=== PATIENT | male | born 1945 | race Caucasian/White ===

== ENCOUNTER 2017-03-25 14:46 | Emergency (ER) | payer OTHER ==
[~2017-03-25] VITALS: Ht 170.2 cm; Wt 82.2 kg
[~2017-03-25 14:46] MED LIST: ALBUAER INH; ALBUAER2 INH; ASPEC325 PO; ASPI81TA28 PO; ATEN25TA PO; BACL10TA PO; FAMO20TA11 PO; FERR325T51 PO; HYDR-5688 PO; LISI-729 PO; MULT-506 PO; NTRSL3 UT; OXYSR10 PO; PANT40TA PO; ROPI5TAB PO; SENNTAB23 PO; SIMV80TA2 PO; TAMS0.4C38 PO; VITAMIN B PO; VITAMIN B12 PO
[2017-03-25 14:49] VITALS: TEMP 36.9; Ht 170.2 cm; Wt 82.2 kg
--- NOTE | 2017-03-25 16:18 | DIAGNOSTIC IMAGING REPORT ---
HEAD WITHOUT CONTRAST (CT) CT DOSE: 537.48 mGy.cm HISTORY: Mental status change eval for cva TECHNIQUE: Multiaxial CT images of the head were performed without the use of intravenous contrast. A dose lowering technique was utilized adhering to the principles of ALARA. Comparison: None. Findings: The paranasal sinuses and mastoid air cells are clear. The calvarium and skull base are intact. The ventricles and sulci are within normal limits. There is no mass, hematoma, midline shift, or acute infarct. Impression: No acute intracranial abnormality. The above report was generated using voice recognition software. It may contain grammatical, syntax or spelling errors. Electronically signed by: Shreyas Titus M.D. 03/25/2017 4:17 PM Dictated Date/Time: 03/25/2017 4:16 PM
--- NOTE | 2017-03-25 16:41 | DIAGNOSTIC IMAGING REPORT ---
CHEST 2 VIEWS ROUTINE CLINICAL HISTORY: pre op preoperative evaluation COMPARISON STUDY: 06/04/2015 FINDINGS: Chronic fibrotic change left base. Prior median sternotomy. Diaphragms smooth. Lungs otherwise are clear. IMPRESSION: Chronic interstitial change left base. No acute process. No change from the prior exam. The above report was generated using voice recognition software. It may contain grammatical, syntax or spelling errors. Electronically signed by: Shreyas Titus M.D. 03/25/2017 4:40 PM Dictated Date/Time: 03/25/2017 4:39 PM
[2017-03-25 16:45] VITALS: BP 113/76; PULSE 61; O2SAT 99
--- NOTE | 2017-03-25 17:46 | EMERGENCY ROOM VISIT NOTE ---
History Report prepared by Lior: Johnna De La Cruz Under the Supervision of: Dr. Marky Pham M.D. First contact with patient: 15:05 Chief Complaint: NEURO SYMPTOMS Stated Complaint: SENT FROM [facility] TIA SX Nursing Triage Summary: right sided facial numbness for the past several days. History of Present Illness The patient is a 71 year old male who presents to the Emergency Room with complaints of intermittent neurological symptoms for the past 3-4 days. He states that 3-4 days ago he felt "something snap" in his jaw. He then developed numbness and tingling in his lower lip that last for about two minutes and then resolved on its own. This feeling has happened 2-3 more times since the initial episode with each subsequent episode lasting about two minutes. The patient wears dentures and states that he got new dentures 6 months ago that are not fitting quite right. They are rubbing his gums and irritating his mouth. He thought that his symptoms might be due to his ill-fitting dentures. The patient states that he has a history of jaw fracture and was told that he has a very thin jaw. The patient denies any dental pain, numbness to his extremities , difficulty walking or speaking, recent tick bites, and rash. The patient was getting blood work done at pre-admission testing today for surgery on April 08. He mentioned his symptoms and was sent to the ED for further evaluation. He does take daily aspirin. Source of History: patient Onset: 3-4 days ago Position: lip, jaw Quality: numbness Timing: intermittent Modifying Factors (Relieving): other (time) Associated Symptoms: No rash Note: Pt denies dental pain, numbness to his extremities, difficulty walking or speaking, and recent tick bites. Review of Systems See HPI for pertinent positives & negatives. A total of 10 systems reviewed and were otherwise negative. Past Medical & Surgical Medical Problems: (1) Hypertension (2) Wears dentures Surgical Problems: (1) S/P TKR (total knee replacement) Family History Cancer Heart disease Hypertension Seizures Social History Smoking Status: Never Smoker Smokeless Tobacco Use: No Alcohol Use: occasionally Marital Status: Housing Status: lives with significant other Occupation Status: retired Current/Historical Medications Scheduled Albuterol Sulfate (Proventil Hfa), 2 PUFFS INH PRN Aspirin (Aspirin Ec), 81 MG PO QAM Atenolol (Tenormin), 25 MG PO QAM Baclofen (Lioresal), 10 MG PO QAM Famotidine (Pepcid), 20 MG PO QAM Lisinopril (Zestril), 2.5 MG PO QAM Nitroglycerin (Nitrostat), 0.3 MG UT PRN Pantoprazole (Protonix), 40 MG PO QAM Ropinirole (Requip), 5 MG PO BID Sennosides-Docusate Sodium (Stool Softener), 1 TAB PO QAM Simvastatin (Zocor), 80 MG PO HS Tamsulosin Hcl (Flomax), 0.4 MG PO HS [Vitamin B12], 1 TAB PO QAM Scheduled PRN Hydrocodone/Acetaminophen 5MG/325MG ([place] 5MG/325MG), 1-2 TAB PO Q4H PRN for N Allergies Coded Allergies: No Known Allergies (Unverified , 03/25/17) Physical Exam Vital Signs Date Time Temp Pulse Resp B/P (MAP) Pulse Ox O2 Delivery O2 Flow Rate FiO2 03/25/17 16:45 61 18 113/76 99 03/25/17 16:24 61 18 113/76 99 Room Air 03/25/17 14:49 36.9 66 18 131/75 94 Room Air Physical Exam Constitutional: Vital signs reviewed. Eyes: Pupils are equal round reactive to light. Conjunctiva are noninjected. ENT: Pharynx is clear without erythema or exudate. Mucous membranes are moist. No jaw tenderness. He does have a very thin mandible. No signs of irritation to the gums under the dentures. Neck supple without meningeal signs. Respiratory: Clear to auscultation bilaterally. Breath sounds are equal bilaterally. Cardiovascular: Regular rate and rhythm. No rubs or gallops. GI: Soft, nondistended and nontender. Bowel sounds are present. Musculoskeletal: No peripheral edema. No lower extremity tenderness. Integumentary: No cyanosis. Neurological: The patient is awake and alert. Cranial nerves II-XII are intact. Motor is 5 out of 5 all extremities. Sensation is intact to light touch all extremities. Normal speech. No pronator drift. Psychiatric: Normal affect. Medical Decision & Procedures ER Provider Diagnostic Interpretation: Radiology results as stated below per my review and the radiologist's interpretation: HEAD WITHOUT CONTRAST (CT) CT DOSE: 537.48 mGy.cm HISTORY: Mental status change eval for cva TECHNIQUE: Multiaxial CT images of the head were performed without the use of intravenous contrast. A dose lowering technique was utilized adhering to the principles of ALARA. Comparison: None. Findings: The paranasal sinuses and mastoid air cells are clear. The calvarium and skull base are intact. The ventricles and sulci are within normal limits. There is no mass, hematoma, midline shift, or acute infarct. Impression: No acute intracranial abnormality. The above report was generated using voice recognition software. It may contain grammatical, syntax or spelling errors. Electronically signed by: Shreyas Titus M.D. 03/25/2017 4:17 PM Dictated Date/Time: 03/25/2017 4:16 PM CHEST 2 VIEWS ROUTINE CLINICAL HISTORY: pre op preoperative evaluation COMPARISON STUDY: 06/04/2015 FINDINGS: Chronic fibrotic change left base. Prior median sternotomy. Diaphragms smooth. Lungs otherwise are clear. IMPRESSION: Chronic interstitial change left base. No acute process. No change from the prior exam. The above report was generated using voice recognition software. It may contain grammatical, syntax or spelling errors. Electronically signed by: Shreyas Titus M.D. 03/25/2017 4:40 PM Dictated Date/Time: 03/25/2017 4:39 PM ECG Indication: other (neuro sx) Rate (beats per minute): 58 Rhythm: sinus bradycardia Findings: no acute ischemic change, no ectopy ED Course 1505: The patient was evaluated in room B9. A complete history and physical exam was performed. 1639: I reassessed the patient at this time. He is feeling better and resting comfortably. He is currently asymptomatic. I discussed the results and treatment plan with the patient. I answered all pertaining questions that he had. He expressed understanding and verbalized agreement. The patient will be discharged home. Medical Decision This is a 71-year-old male who presents with intermittent right lower jaw numbness. Differential diagnosis includes TIA, intracranial hemorrhage, intracranial mass, neurapraxia. I did perform a limited focused review of portions of the patient's old chart on the electronic medical record. The patient has had no recent pertinent visits to this hospital. I did evaluate the patient as noted above. Patient is presenting with intermittent episodes of right lower jaw numbness. He states it feels like something is snapping and there and the numbness only lasts for 2 minutes. He has no other symptoms. He has no history of TIA or CVA. He does state that he has recently obtained new dentures which seem to be rubbing his mandible the wrong way and are very ill fitting. He states his symptoms occurred when he was eating a jaw breaker. He does not have any pain to his jaw. He is neurologically intact at this time. He did have blood work earlier today. I did order and personally review the patient's 12-lead EKG and chest x-ray as described above. I did order a CT of the head. I did review the images myself as well as the radiology report as described above. There is no evidence of acute pathology. I did discuss the test results with the patient. He does take aspirin daily. He will continue to take the aspirin. It is unclear whether he had a TIA or transient numbness may be an issue with his dentures pushing on the inferior alveolar nerve. He was advised to follow up very closely with his doctor for further evaluation and to try a soft diet in the meantime. He was discharged in good condition. He was given return instructions as outlined below. Medication Reconcilliation Current Medication List: was personally reviewed by me Blood Pressure Screening Patient's blood pressure: Elevated blood pressure Blood pressure disposition: Referred to PCP Impression Primary Impression: Right facial numbness Scribe Attestation The scribe's documentation has been prepared under my direct and personally reviewed by me in its entirety. I confirm that the note above accurately reflects all work, treatment, procedures, and medical decision making performed by me. Departure Information Dispostion Home / Self-Care Referrals Aron Robison D.O. (PCP) Forms HOME CARE DOCUMENTATION FORM, IMPORTANT VISIT INFORMATION, WORK / SCHOOL INSTRUCTIONS Patient Instructions [facility] Additional Instructions You have been examined and treated today on an emergency basis only. This is not a substitute for, or an effort to provide, complete comprehensive medical care. It is impossible to recognize and treat all injuries or illnesses in a single emergency department visit. It is therefore important that you follow up closely with your physician. Call as soon as possible for an appointment. Return for worsening symptoms or if you develop fever, numbness or weakness on one side of your body, difficulties with your speech or walking, or any other concerning symptoms.
== END 2017-03-25 16:45 | disposition home or self-care (01) ==
LOC: C.EDB 14:48
DX: R20.0 Anesthesia of skin (principal); I10 Essential (primary) hypertension; Z82.49 Family history of ischemic heart disease and other diseases of the circulatory system; Z82.0 Family history of epilepsy and other diseases of the nervous system; Z79.82 Long term (current) use of aspirin

== ENCOUNTER 2017-04-08 05:54 | Inpatient (IN) | payer OTHER ==
--- NOTE | 2017-03-25 13:29 | HISTORY & PHYSICAL EXAMINATION ---
DATE OF ADMISSION: 04/08/2017 CHIEF COMPLAINT: Left knee pain. HISTORY OF PRESENT ILLNESS: Mr. Houston is a 71-year-old male with a multiple year history of left knee pain. The patient rates his pain a 10/10. He has pain with his daily activities. He has limited standing and walking tolerance. Pain is worse with weightbearing. The patient has failed bracing, physical therapy, narcotics over the last few years. He has had knee arthroscopy in October of this year. He has failed conservative treatment and is now scheduled for left knee replacement. PAST MEDICAL HISTORY: History of ME 2002, COPD, seizure in 1975, acid reflux. He denies diabetes or DVT. PAST SURGICAL HISTORY: Quadruple bypass, tonsillectomy, umbilical hernia repair, ORIF right arm, ORIF left wrist, hardware removal ankle, closed reduction of the shoulder, right rotator cuff repair, bilateral carpal tunnel, cardiac stent placement, hemorrhoidectomy, right knee arthroscopy, right TKA and left knee arthroscopy. SOCIAL HISTORY: The patient drinks 2 drinks per week. He denies tobacco use. He lives in a single story home. He is and retired. FAMILY HISTORY: Negative for DVT. MEDICATIONS: Baclofen 10 mg t.i.d., Requip 5 mg t.i.d., Requip, Flomax 0.4 mg daily, famotidine 20 mg daily, aspirin 81 mg daily, Nitrostat 0.3 mg p.r.n., Protonix 40 mg daily, atenolol 25 mg daily, atorvastatin 80 mg, [place] 5/325, lisinopril 2.5 mg, Ventolin HFA 90 mcg, Proventil HFA 90 mcg, stool softener, Voltaren 1% gel and Mobic 15 mg. ALLERGIES: None. REVIEW OF SYSTEMS: See HPI. Ten other systems reviewed, all negative. PHYSICAL EXAMINATION: VITAL SIGNS: Height 5 foot 7, weight 182 pounds, BMI 26. GENERAL: This is a well-developed, well-nourished male who is alert and oriented x3. Mood and affect are appropriate. HEAD, EYES, EARS, NOSE, AND THROAT: Normocephalic, atraumatic. Mucous membranes are moist and intact. NECK: Supple without lymphadenopathy. HEART: Regular rate and rhythm without murmurs, rubs or gallops. LUNGS: Clear to auscultation without wheezes or rhonchi. ABDOMEN: Soft and nontender. Bowel sounds are equal and active. EXTREMITIES: No ecchymosis, redness or warmth. He has varus deformity. He has scars noted from his recent arthroscopy. He has large Edouard's cyst posteriorly. Range of motion is from 5-110 degrees with moderate effusion. He is otherwise neurovascularly intact. X-RAY EXAMINATION: AP and lateral views show joint space narrowing and osteophyte formation. IMPRESSION: Degenerative joint disease, left knee. PLAN: The patient will be admitted for a left total knee arthroplasty. We will plan on aspirin for DVT prophylaxis. The patient has [facility] insurance and will likely need local home physical therapy upon discharge.
[2017-03-25 13:32] VITALS: BMI 28.0
--- NOTE | 2017-03-25 14:24 | PAT Medication Instructions ---
Service Date Mar 25, 2017. Current Home Medication List Albuterol Sulfate (Proventil Hfa), 2 PUFFS INH PRN Aspirin (Aspirin Ec), 81 MG PO QAM Atenolol (Tenormin), 25 MG PO QAM Baclofen (Lioresal), 10 MG PO QAM Famotidine (Pepcid), 20 MG PO QAM Hydrocodone/Acetaminophen 5MG/325MG ([place] 5MG/325MG), 1-2 TAB PO Q4H PRN for N Lisinopril (Zestril), 2.5 MG PO QAM Nitroglycerin (Nitrostat), 0.3 MG UT PRN Pantoprazole (Protonix), 40 MG PO QAM Ropinirole (Requip), 5 MG PO BID Sennosides-Docusate Sodium (Stool Softener), 1 TAB PO QAM Simvastatin (Zocor), 80 MG PO HS Tamsulosin Hcl (Flomax), 0.4 MG PO HS [Vitamin B12], 1 TAB PO QAM Medication Instructions For Your Scheduled Surgery - Continue as directed: Nitroglycerin (Nitrostat), 0.3 MG UT PRN - Hold the following medications the morning of surgery: [Vitamin B12], 1 TAB PO QAM Sennosides-Docusate Sodium (Stool Softener), 1 TAB PO QAM Lisinopril (Zestril), 2.5 MG PO QAM Baclofen (Lioresal), 10 MG PO QAM Ropinirole (Requip), 5 MG PO BID Hold the following the night before surgery: Hydrocodone/Acetaminophen 5MG/325MG ([place] 5MG/325MG), 1-2 TAB PO Q4H PRN (if needed - Take the following medications the morning of surgery with a sip of water: Albuterol Sulfate (Proventil Hfa), 2 PUFFS INH PRN Aspirin (Aspirin Ec), 81 MG PO QAM Atenolol (Tenormin), 25 MG PO QAM Famotidine (Pepcid), 20 MG PO QAM Hydrocodone/Acetaminophen 5MG/325MG ([place] 5MG/325MG), 1-2 TAB PO Q4H PRN (if needed, can be taken up to four hours before surgery) Pantoprazole (Protonix), 40 MG PO QAM - Take the following medications as scheduled the night before surgery: Simvastatin (Zocor), 80 MG PO HS Tamsulosin Hcl (Flomax), 0.4 MG PO HS Hydrocodone/Acetaminophen 5MG/325MG ([place] 5MG/325MG), 1-2 TAB PO Q4H PRN (if needed) If you have any questions please call us at [phone] or [phone] or [phone]
[2017-03-25 15:05] LABS: BASO % 0.2 %; BASO ABS # 0.01 K/uL (0-0.2); COMPLETE YES; EOS % 1.6 %; HEMATOCRIT 39.6 % (42-52); IG% 0.2 %; LYMPH % 22.8 %; LYMPH ABS # 0.99 K/uL (1.2-3.4); MEAN CELL VOLUME 99.5 fL (80-100); MEAN CORPUSCULAR HEMOGLOBIN 33.4 pg (25-34); MEAN CORPUSCULAR HGB CONC 33.6 g/dl (32-36); MEAN PLATELET VOLUME 9.4 fL (7.4-10.4); MONO % 9.4 %; NEUT % 65.8 %; PLATELET COUNT 149 K/uL (130-400); RED BLOOD COUNT 3.98 M/uL (4.7-6.1); WHITE BLOOD COUNT 4.35 K/uL (4.8-10.8)
[2017-03-25 15:14] LABS: BUN/CREATININE RATIO 18.2 (10-20); CALCIUM 9.2 mg/dl (8.5-10.1); CREATININE 1.07 mg/dl (0.60-1.40)
--- NOTE | 2017-03-25 15:18 | Anesthesiology Progress Note ---
Anesthesia Progress Note Date of Service Mar 25, 2017. Progress Notes Patient was seen in [facility] for upcoming LTKA. Upon interviewing the patient he revealed to me that he has been having transient numbness of his right jaw for approximately 4 days, each time lasting for a few minutes. The most recent episode of this was yesterday while riding in the car. He denied having the symptoms presently. He said when it first happened he had a sharp pain in his jaw, and then had episodes of numbness a few times per day for the past 4 days. He does have a history of injury and fracture repair to the jaw many years ago, but has never experienced these symptoms before. He also has a history of tobacco abuse (1 ppd x 20+ years), [place] 2002, PE 2011. Patient's vital signs were stable at [facility]. Based on my assessment, I felt it was reasonable to send the patient to the ER given his risk for TIA. The patient and his were agreeable. The patient had his [facility] blood work completed while I called over to the ER patient care secretary who transferred me to the triage nurse. e I informed her I would be bringing a patient over. I then walked the patient and his over to the ER. He declined a wheelchair. I brought him to the front desk assistant at the ER and got him checked in, where the patient care secretary, Mishel, said they would send him back as soon as the triage nurse was free, as she was currently doing intake with another patient.
[2017-03-25 15:20] LABS: INR 0.9 (0.9-1.1)
[2017-04-08] VITALS (8 sets, daily range): BP systolic 99–124; BP diastolic 56–72; PULSE 63–71; TEMP 36.4–37; O2SAT 94–100; Ht 170.2 cm; Wt 82.5 kg
[~2017-04-08] VITALS: Ht 170.2 cm; Wt 82.5 kg
[~2017-04-08 05:54] MED LIST changes: -ALBUAER2 INH; -ASPEC325 PO; -FERR325T51 PO; -MULT-506 PO; -OXYSR10 PO; -VITAMIN B PO
[2017-04-08] MEDS ORDERED: LACTATED RINGER'S 1000ML 1,000 ML IV SCH (06:00)
[2017-04-08] MEDS ORDERED: METOCLOPRAMIDE HCL 10 MG TAB PO SCH (06:00)
[2017-04-08] MEDS ORDERED: CeleBREX 200 MG CAP PO SCH (06:00)
[2017-04-08] MEDS ORDERED: LACTATED RINGER'S 1000ML 500 ML IV ONE (06:00)
[2017-04-08] MEDS ORDERED: DEXAMETHASONE 4 MG TAB PO SCH (06:00)
[2017-04-08] MEDS ORDERED: CEFAZOLIN 2000MG IV PUSH 10 ML IV SCH (06:00)
[2017-04-08] MEDS ORDERED: GABAPENTIN 300 MG CAP PO SCH (06:00)
[2017-04-08] MEDS ORDERED: LACTATED RINGER'S 1000ML IV SCH (06:00)
[2017-04-08] MEDS ORDERED: FAMOTIDINE 20 MG TAB PO SCH (06:00)
[2017-04-08] MEDS ORDERED: ACETAMINOPHEN 500 MG TAB PO SCH (06:00)
[2017-04-08] MEDS ORDERED: ROPIVACAINE 5MG/ML 30 ML 150 MG, BUPIVACAINE 0.5% MPF INJ 30 ML, EpINEphrine HCL INJ 0.... INFIL SCH ×8 (06:00)
[2017-04-08] MEDS ORDERED: BUPIVACAINE 0.5 % 5 MG/1 ML PF 10ML VIAL ONE (06:27)
[2017-04-08] MEDS ORDERED: ROPIVACAINE 0.5% 5 MG/ML 30 ML VIAL ONE (06:28)
[2017-04-08] MEDS: TRANEXAMIC ACID INJ 1,000 MG in SYRINGE 0 ML IV SCH ×2 (06:30→09:05)
--- NOTE | 2017-04-08 07:02 | History & Physical Bridge Note ---
H&P Re-Evaluation Bridge Note: I have examined the patient, reviewed the History & Physical and in the interval since the performance of the History & Physical I have noted the following changes of clinical significance: No changes noted
[2017-04-08] MEDS ORDERED: ONDANSETRON INJ 2 MG/ML 2 ML VIAL IV PRN ×2 (08:30→11:30)
[2017-04-08] MEDS ORDERED: EpHEDrine SULFATE INJ 50 MG/ML AMP IV PRN (08:30)
[2017-04-08] MEDS ORDERED: ATROPINE SULFATE 0.1 MG/ML 5ML SYR IV PRN (08:30)
[2017-04-08] MEDS ORDERED: PHENYLEPHRINE 100MCG/ML 5ML SYR IV PRN (08:30)
[2017-04-08] MEDS ORDERED: HYDROmorphone INJ 2 MG/ML SYR/VIAL IV PRN (08:30)
[2017-04-08] MEDS ORDERED: MIDAZOLAM HCL 1 MG/ML 2ML VIAL ONE ×2 (08:46)
[2017-04-08] MEDS ORDERED: ORTHO JOINT ANESTHETIC ONE (09:21)
[2017-04-08] MEDS ORDERED: BACITRACIN 50000 UNIT VIAL ONE (09:21)
[2017-04-08] MEDS ORDERED: POVIDONE-IODINE OP SOLN 30 ML BTL ONE (09:21)
[2017-04-08] MEDS ORDERED: PROPOFOL IV EMULSION 10 MG/ML 20 ML VIAL IV ONE (10:04)
[2017-04-08] MEDS ORDERED: LIDOCAINE HCL 2% 2 ML VIAL (20MG/ML) ONE (10:04)
--- NOTE | 2017-04-08 10:51 | [facility] Operative Report ---
Operative Report Operative Date Apr 08, 2017. Pre-Operative Diagnosis Degenerative joint disease left knee Post-Operative Diagnosis Same Procedure(s) Performed Left total knee arthroplasty cemented Simple Tit[place] journey to with blocks patient matched size 6 femur 5 tibia 11 Jaclyn [address] Viera Bodily Injury Adjuster Surgeon(s) Simran Castrejon PA-C Estimated Blood Loss 5cc Findings Patient presents with severe end-stage DJD varus alignment subchondral osteophyte subchondral cystic changes osteophytes and sclerosis patient's failed attempts conservative management including injections anti- inflammatories Roto-Rest activity modification presents for total knee arthroplasty Specimens A. Left knee bone and tissue Complication(s) None Disposition Recovery Room / PACU Indications Patient presents with DJD left knee of failing attempts at conservative management including physical therapy anti-inflammatories relative rest activity modifications x-rays will be able subchondral cystic changes medial compartment DJD patellofemoral compartment DJD chondrosis marginal osteophytes as well as subchondral cystic changes and sclerotic changes Description of Procedure After proper prepping and draping of the left lower extremity anterior midline incision was made over the region of the extensor extensor mechanism after meticulous hemostasis was obtained and maintained in subcutaneous tissues a medial parapatellar incision was made The patella was subluxed lateralward the medial lateral gutter were cleaned from any hypertrophic synovitis and scar tissue of the distal femoral block was placed and the distal femoral osteotomy cut was made subsequently the chamfers anterior and posterior osteotomy cuts were made utilizing the 4-in-1 block the tibia was subsequently subluxed anteriorward medial and ateral meniscal remnants were excised in their entirety remnants of the anterior and posterior cruciate ligaments were excised in their entirety excellent exposure of the proximal tibia was obtained the tibial osteotomy guide was placed on the proximal tibial osteotomy cut was made once again the knee was irrigated with copious amounts of sterile saline solution the patella was subsequently everted lateralward thickened scar tissue around the patella was removed the patella was subsequently cut utilizing a freehand technique and was drilled prepared for final preparation and placement of patella socially flexion-extension gaps were checked and the equal and symmetric trials were placed to the appropriate femoral and tibial trials with poly-spacer being placed for equal flexion and extension gaps and full range of motion including extension to 0 and flexion to 140 the trial components after having been taken to recovery range of motion was subsequently removed meticulous hemostasis was obtained and maintained subsequently a knee block injection of joint cocktail including ropivacaine 0.5% 150 mg. Bupivacaine 0.5 % epinephrine 1-200,030 mL's toradol 30 mg dexamethasone 4 mg ketamine 10 mg clonidine 100 micrograms normal saline solution 30 mg was infiltrated into the soft tissues of the posterior knee medial lateral gutters and periosteal synovium special attention was paid to protect neurovascular structures at all times subsequently trial components having been removed the knee was irrigated with sterile saline solution. debris was removed the proximal tibia was subsequently prepared and was made ready for the placement of the tibial component tibial component was also cemented and tamped into position the femoral component was subsequently placed and cemented in the position the patellar component was subsequently cemented in position because hemostasis once again obtained and maintained wound having been thoroughly irrigated with debridement and debridement lavage was performed as well as a medial parapatellar incision closed with #1 Vicryl in interrupted fashion subcutaneous was closed with #2 Vicryl skin was closed with skin clips. PA-C was necessary for prepping and drapping as well as wound closure of deep fascia Sub cutaneous tissue and skin and was necessary for the case. A sterile compressive dressing was placed patient was taken to recovery in stable condition of report dictated by Maximiliano I attest to the content of the Intraoperative Record and any orders documented therein. Any exceptions are noted below. I attest to the content of the Intraoperative Record and any orders documented therein. Any exceptions are noted below.
[2017-04-08] MEDS ORDERED: BISACODYL 10 MG SUPP PR PRN (11:30)
[2017-04-08] MEDS ORDERED: SOD PHOSPHATE/SOD BIPHOSPHATE ENEMA 132 ML BTL PR PRN (11:30)
[2017-04-08] MEDS ORDERED: ZOLPIDEM TARTRATE 5 MG TAB PO PRN (11:30)
[2017-04-08] MEDS ORDERED: NITROGLYCERIN 0.3 MG/1 TAB 100 TAB BTL UT PRN (11:30)
[2017-04-08] MEDS ORDERED: ALBUTEROL HFA 8 GM INHALER INH PRN (11:30)
[2017-04-08] MEDS ORDERED: MAGNESIUM HYDROXIDE SUSP 30 ML UDC PO PRN (11:30)
[2017-04-08] MEDS ORDERED: ALUMINUM/MAGNESIUM/SIMETH (MAALOX MAX) 30 ML UDC PO PRN (11:30)
[2017-04-08] MEDS ORDERED: MoRPHine SULFATE 2 MG/ML CARP IV PRN (11:30)
--- NOTE | 2017-04-08 11:37 | Anesthesiology Progress Note ---
Anesthesia Post Op Note Date & Time Apr 08, 2017 at 11:37 Vital Signs Pain Intensity: 0 Vital Signs Past 12 Hours Date Time Temp Pulse Resp B/P (MAP) Pulse Ox O2 Delivery O2 Flow Rate FiO2 04/08/17 11:25 36.2 68 14 98/56 95 Room Air 04/08/17 06:55 36.9 68 18 120/65 95 Room Air Notes Mental Status: alert / awake / arousable, participated in evaluation Pt Amnestic to Procedure: Yes Nausea / Vomiting: adequately controlled Pain: adequately controlled Airway Patency, RR, SpO2: stable & adequate BP & HR: stable & adequate Hydration State: stable & adequate Anesthetic Complications: no major complications apparent
--- NOTE | 2017-04-08 12:22 | DIAGNOSTIC IMAGING REPORT ---
L KNEE 1 OR 2 VIEWS ROUTINE CLINICAL HISTORY: Postoperative evaluation. COMPARISON: None FINDINGS: Alignment of the total left knee arthroplasty is anatomic. There is no periprosthetic fracture or unexpected radiopaque foreign body. Surgical clip is noted within the soft tissues medial to the left knee. Surgical drain is in place. IMPRESSION: Expected findings following total left knee arthroplasty. Electronically signed by: Ralhp Ugarte M.D. 04/08/2017 12:20 PM Dictated Date/Time: 04/08/2017 12:19 PM
[2017-04-08] MEDS: D5W AND 1/2NSS + 20MEQ KCL 1,000 ML IV SCH ×2 (14:14→23:37)
[2017-04-08] MEDS: ACETAMINOPHEN 500 MG TAB PO SCH ×2 (14:15→21:50)
[2017-04-08] MEDS: KETOROLAC TROMETHAMINE 15 MG/ML VIAL IV. SCH ×2 (14:16→20:29)
[2017-04-08 16:12] LABS: URINE APPEARANCE CLEAR (CLEAR); URINE BILIRUBIN NEG (NEG); URINE COLOR YELLOW; URINE NITRITE NEG (NEG); URINE PH 6.5 (4.5-7.5); URINE SPECIFIC GRAVITY 1.012 (1.000-1.030); UROBILINOGEN NEG (NEG); ZZUR CULT IF INDIC CLEAN CATCH NO
[2017-04-08 16:15] LABS: MANUAL MICROSCOPIC REQUIRED? NO; REVIEW REQ? NO
[2017-04-08] MEDS: ROPINIROLE HCL 5 MG TAB PO SCH (17:23)
[2017-04-08] MEDS: CEFAZOLIN IV 2,000 MG in SYRINGE 0 ML IV SCH (17:26)
[2017-04-08] MEDS: ASPIRIN 81 MG ECTAB PO SCH (20:30)
[2017-04-08] MEDS: SENNA 8.6 MG TAB PO SCH (20:30)
[2017-04-08] MEDS: SIMVASTATIN 80 MG TAB PO SCH (20:30)
[2017-04-08] MEDS: TAMSULOSIN HCL 0.4 MG CAP PO SCH (20:31)
[2017-04-09] MEDS: OXYCODONE HCL IR 5 MG TAB (IMMEDIATE RELEASE) PO PRN ×5 (00:26→23:57)
[2017-04-09] MEDS: CEFAZOLIN IV 2,000 MG in SYRINGE 0 ML IV SCH (02:17)
[2017-04-09] MEDS: KETOROLAC TROMETHAMINE 15 MG/ML VIAL IV. SCH ×2 (02:17→08:09)
[2017-04-09 02:45] VITALS: BP 104/61; PULSE 68; TEMP 36.6; O2SAT 92
[2017-04-09] MEDS: ACETAMINOPHEN 500 MG TAB PO SCH ×3 (05:34→21:10)
[2017-04-09 06:50] VITALS: BP 118/68; PULSE 56; TEMP 36.5; O2SAT 96
[2017-04-09 07:02] LABS: HEMATOCRIT 33.7 % (42-52); MEAN CELL VOLUME 98.8 fL (80-100); MEAN CORPUSCULAR HEMOGLOBIN 32.3 pg (25-34); MEAN CORPUSCULAR HGB CONC 32.6 g/dl (32-36); MEAN PLATELET VOLUME 9.6 fL (7.4-10.4); PLATELET COUNT 162 K/uL (130-400); RED BLOOD COUNT 3.41 M/uL (4.7-6.1); WHITE BLOOD COUNT 10.45 K/uL (4.8-10.8)
[2017-04-09] MEDS ORDERED: DEXAMETHASONE INJ 10 MG in SYRINGE 0 ML IV ONE (07:30)
--- NOTE | 2017-04-09 07:31 | Orthopedic Progress Note ---
Orthopedic Progress Note Date of Service Apr 09, 2017. Subjective Post OP Day: 1 Reports: feeling well, Denies: chest pain, SOB, nausea / vomiting, light headedness, calf pain Objective calves soft nontender, N/V intact, capillary refill less than 2 sec., dressing C /D/I, A&O x3, toes mobile, hemovac drainage (400/150cc per shift) Date Time Temp Pulse Resp B/P (MAP) Pulse Ox O2 Delivery O2 Flow Rate FiO2 04/09/17 06:50 36.5 56 18 118/68 (85) 96 Room Air 04/09/17 02:45 36.6 68 18 104/61 (75) 92 Room Air 04/08/17 23:30 36.8 69 16 100/56 (71) 96 Room Air 04/08/17 20:30 Room Air 04/08/17 19:41 36.4 64 18 112/62 (79) 95 Room Air 04/08/17 15:40 36.5 69 18 111/67 (82) 94 Room Air 04/08/17 14:53 63 16 99/67 (78) 96 04/08/17 13:40 69 17 104/63 (77) 100 04/08/17 13:09 71 18 124/66 (85) 99 Nasal Cannula 2.0 04/08/17 13:00 Nasal Cannula 2.0 04/08/17 12:54 Nasal Cannula 2.0 04/08/17 12:52 Nasal Cannula 2.0 04/08/17 12:40 37.0 65 18 108/72 (84) 95 Nasal Cannula 2.0 04/08/17 12:15 70 17 107/65 97 Nasal Cannula 2 04/08/17 12:00 61 18 102/68 98 Nasal Cannula 2 04/08/17 11:45 36.0 66 21 102/66 96 Nasal Cannula 2 04/08/17 11:35 60 19 93/60 97 Nasal Cannula 2 04/08/17 11:25 36.2 68 14 98/56 95 Room Air Laboratory Results 24 Hours: Test 04/09/17 06:26 Hematocrit 33.7 % Hemoglobin 11.0 g/dL Assessment & Plan Assessment: POD#1 sp left TKA Plan: PT/0T DVT PROPH- ASA 81MG BID PAIN MANAGEMENT- ДМИТРИЙ, TYLENOL ELLIOT PLANNING- HOME WITH [facility]. LIKELY THURSDAY
[2017-04-09 07:35] LABS: BUN/CREATININE RATIO 18.7 (10-20); CALCIUM 8.3 mg/dl (8.5-10.1); CREATININE 1.22 mg/dl (0.60-1.40); POTASSIUM 4.6 mmol/L (3.5-5.1)
[2017-04-09 08:00] VITALS: O2SAT 96
[2017-04-09] MEDS: ASPIRIN 81 MG ECTAB PO SCH ×2 (08:10→21:10)
[2017-04-09] MEDS: BACLOFEN 10 MG TAB PO SCH (08:10)
[2017-04-09] MEDS: MULTIVITAMIN TAB PO SCH (08:11)
[2017-04-09] MEDS: ROPINIROLE HCL 5 MG TAB PO SCH ×2 (08:12→21:10)
[2017-04-09] MEDS: PANTOprazole SOD 40 MG TAB PO SCH (08:12)
[2017-04-09] MEDS: LISINOPRIL 5 MG TAB PO SCH (08:13)
[2017-04-09] MEDS: FAMOTIDINE 20 MG TAB PO SCH (08:47)
[2017-04-09] MEDS ORDERED: PANTOprazole SOD 40 MG TAB PO SCH (09:00)
--- NOTE | 2017-04-09 09:00 | Anesthesiology Progress Note ---
Anesthesia Post Op Note Date & Time Apr 09, 2017 at 09:00 Vital Signs Pain Intensity: 5.0 Vital Signs Past 12 Hours Date Time Temp Pulse Resp B/P (MAP) Pulse Ox O2 Delivery O2 Flow Rate FiO2 04/09/17 06:50 36.5 56 18 118/68 (85) 96 Room Air 04/09/17 02:45 36.6 68 18 104/61 (75) 92 Room Air 04/08/17 23:30 36.8 69 16 100/56 (71) 96 Room Air Notes Mental Status: alert / awake / arousable, participated in evaluation Pt Amnestic to Procedure: Yes Nausea / Vomiting: adequately controlled Pain: adequately controlled Airway Patency, RR, SpO2: stable & adequate BP & HR: stable & adequate Hydration State: stable & adequate Neuraxial Anesthesia: sensory block resolved Anesthetic Complications: no major complications apparent
[2017-04-09] MEDS: D5W AND 1/2NSS + 20MEQ KCL 1,000 ML IV SCH (10:01)
--- NOTE | 2017-04-09 15:45 | Discharge Instructions ---
Discharge Instructions Date of Service Apr 09, 2017. Admission Reason for Admission: Left Knee Osteoarthritis Discharge Discharge Diagnosis / Problem: Left Knee Djd Discharge Goals Goal(s): Decrease discomfort, Improve function, Increase independence Activity Recommendations Activity Limitations: per Instructions/Follow-up section Weightbearing Status: Left weightbearing (as tolerated) . Instructions / Follow-Up Instructions / Follow-Up ACTIVITY RECOMMENDATIONS: SELF CARE INSTRUCTIONS AFTER TOTAL KNEE REPLACEMENT A. You may need to continue a physical therapy program after discharge from the hospital. There are several options available to you. Your doctor will assist you in selecting the best one for you. 1. An out-patient facility 2 to 3 times a week for therapy or home therapy. 2. Continue working on all exercises taught to you in the hospital. Your goals should be to increase bending of your knee to 90 degrees and beyond and to fully straighten your knee. B. You may progress at your own pace from walking with a walker or crutches to a cane; then to no assistive devices. C. Make walking a part of your daily routine. Be up as much as comfortable with rest periods throughout the day. Rest with leg elevation is very important. Use the ice wrap frequently for the first 3-4 weeks. D. There are no restrictions on activities. You may ride in a car, shop, participate in sales contracts analyst and all social activities. E. Wear the long elastic stockings (MICHELLE hose) 20 hours a day for 2 weeks after surgery. They can be removed several times a day for laundering and for a bath. F. You may shower, no tub baths until cleared by your doctor. SPECIAL CARE INSTRUCTIONS: VERY IMPORTANT TO READ AND REVIEW A. There are a few signs you need to watch for after you are home. Call [facility] if you notice any of the followin. Increased severe knee pain. Some pain is expected especially when you exercise. 2. Increased swelling in your leg or knee; pain or swelling of the calf muscle in either lower leg. 3. Any fluid drainage from the incision. 4. Shortness of breath or chest pain. B. Please call [facility] at if you have any concerns or questions about your operation or recovery. The doctor or his nurse will return your call promptly. C. You must take antibiotics before dental work, bladder, bowel or other surgery. Your doctor will provide you with a permanent care to carry describing this precaution. IMPORTANT: * REMEMBER TO TAKE ASPIRIN, 81 MG, TWICE DAILY FOR 4 WEEKS UNLESS OTHERWISE DIRECTED. THIS IS YOUR BLOOD THINNER. * HIGH RISK PATIENTS MAY BE PRESCRIBED A STRONGER BLOOD THINNER. THIS WILL BE PROVIDED AT DISCHARGE. * CALL IF INCREASED PAIN, REDNESS, DRAINAGE OR FEVER GREATER THAT 101. * WEAR MICHELLE HOSE 20 HOURS PER DAY FOR 2 WEEKS. * DERMABOND Prineo- This is a mesh tape dressing that is covered with glue. It should remain in place until the incision is properly healed, usually 10-14 days. This dressing is designed to naturally slough off. You may trim the excess mesh tape as it peels off. Incision may be briefly wet in a shower. Dry immediately by blotting with a clean, dry towel. Do not bath or swim until instructed by your doctor. Do not scratch, rub, or pick at the dressing. Do not apply any topical ointments or lotions until dressing is completely removed and/or instructed by your doctor. There may be a small piece of suture material at one end of your incision. Do not pull or trim this. If it is bothersome or catching on clothing, you may cover it with a band-aid. . FOLLOW UP VISIT: If appointment is not already scheduled: Please call [facility] to make a follow-up appointment for 2 weeks after your surgery at . Current Hospital Diet Patient's current hospital diet: Regular Diet Discharge Diet Recommended Diet: Regular Diet Procedures Procedures Performed: Left total knee arthroplasty cemented Lobo neph journey to with blocks patient matched size 6 femur 5 tibia 11 Jaclyn 32 oval patella Pending Studies Studies pending at discharge: no Medical Emergencies . Who to Call and When: Medical Emergencies: If at any time you feel your situation is an emergency, please call 911 immediately. . Non-Emergent Contact Non-Emergency issues call your: Surgeon Call Non-Emergent contact if: temperature is above 101.5, your pain is not controlled, your pain is worsening, wound has increased drainage, wound has increased redness . "Provider Documentation" section prepared by Venkata Perez. . VTE Core Measure Inpt VTE Proph given/why not?: Other Anticoagulation, T.E.D. Stockings, SCD's [place] Drug Monitoring Program Search Results: patient reviewed within database, no issues identified Drug Monitoring Findings: Pt receiving narcotic from Dr Aron Robison in [place]. Last Rx was 04/02/17 for 8 days of medication. Pt will need to return to Dr Siegel'eduardo after the post operative period if he needs further medications.
[2017-04-09 16:15] VITALS: BP 110/66; PULSE 73; TEMP 36.4; O2SAT 98
[2017-04-09] MEDS: TRAMADOL HCL 50 MG TAB PO PRN ×2 (16:43→21:37)
[2017-04-09] MEDS: SENNA 8.6 MG TAB PO SCH (21:00)
[2017-04-09] MEDS: SIMVASTATIN 80 MG TAB PO SCH (21:11)
[2017-04-09] MEDS: CeleBREX 200 MG CAP PO SCH (21:11)
[2017-04-09] MEDS: TAMSULOSIN HCL 0.4 MG CAP PO SCH (21:11)
[2017-04-09 23:15] VITALS: BP 134/71; PULSE 62; TEMP 36.8; O2SAT 95
[2017-04-10] MEDS: OXYCODONE HCL IR 5 MG TAB (IMMEDIATE RELEASE) PO PRN ×2 (05:09→09:22)
[2017-04-10] MEDS: ACETAMINOPHEN 500 MG TAB PO SCH (05:46)
[2017-04-10 06:30] VITALS: BP 111/64; PULSE 60; TEMP 36.7; O2SAT 97
--- NOTE | 2017-04-10 06:55 | Orthopedic Progress Note ---
Orthopedic Progress Note Date of Service Apr 10, 2017. Subjective Post OP Day: 2 Reports: feeling well, Denies: complaints Objective calves soft nontender, N/V intact, incision C/D/I, A&O x3, toes mobile Date Time Temp Pulse Resp B/P (MAP) Pulse Ox O2 Delivery O2 Flow Rate FiO2 04/10/17 06:30 36.7 60 16 111/64 (80) 97 Room Air 04/09/17 23:25 Room Air 04/09/17 23:15 36.8 62 16 134/71 (92) 95 Room Air 04/09/17 16:15 36.4 73 20 110/66 (81) 98 Room Air 04/09/17 16:00 Room Air 04/09/17 08:00 96 Room Air Assessment & Plan Assessment: POD#2 sp left TKA Plan: PT/0T DVT PROPH- ASA 81MG BID PAIN MANAGEMENT- ДМИТРИЙ, TYLENOL ELLIOT PLANNING- [facility]
[2017-04-10] MEDS ORDERED: RXC5 PO (06:58)
[2017-04-10] MEDS ORDERED: ASPI81TA28 PO (06:58)
[2017-04-10] MEDS ORDERED: CLB200 PO (06:58)
[2017-04-10] MEDS ORDERED: ACET-24 PO (06:59)
[2017-04-10] MEDS: CeleBREX 200 MG CAP PO SCH (07:22)
[2017-04-10] MEDS: BACLOFEN 10 MG TAB PO SCH (07:22)
[2017-04-10] MEDS: MULTIVITAMIN TAB PO SCH (07:22)
[2017-04-10] MEDS: ASPIRIN 81 MG ECTAB PO SCH (07:22)
[2017-04-10] MEDS: PANTOprazole SOD 40 MG TAB PO SCH (07:23)
[2017-04-10] MEDS: ROPINIROLE HCL 5 MG TAB PO SCH (07:23)
[2017-04-10] MEDS: LISINOPRIL 5 MG TAB PO SCH (07:24)
[2017-04-10] MEDS: FAMOTIDINE 20 MG TAB PO SCH (07:28)
[2017-04-10 07:45] VITALS: BP 118/76; PULSE 68; TEMP 36.5; O2SAT 93
[2017-04-10 07:49] VITALS: O2SAT 93
[2017-04-10 08:39] VITALS: BP 118/76; PULSE 68; TEMP 36.5; O2SAT 93
== END 2017-04-10 10:15 | disposition home health service (06) | DRG 470 ==
LOC: C.ACU 05:54 → C.3E 06:45 → ENRESERV 12:11
PROVIDERS: ADMIT Orthopaedic Surgery; ATTEND Orthopaedic Surgery
PROC: 0SRD0J9 Replacement of Left Knee Joint with Synthetic Substitute, Cemented, Open Approach (ICD-10-PCS; principal; 2017-04-08 09:15)
DX: M17.12 Unilateral primary osteoarthritis, left knee (principal); R20.0 Anesthesia of skin; I25.2 Old myocardial infarction; J44.9 Chronic obstructive pulmonary disease, unspecified; K21.9 Gastro-esophageal reflux disease without esophagitis; Z79.899 Other long term (current) drug therapy; Z79.82 Long term (current) use of aspirin; Z95.1 Presence of aortocoronary bypass graft; Z96.651 Presence of right artificial knee joint; Z86.711 Personal history of pulmonary embolism; Z87.891 Personal history of nicotine dependence